=== PATIENT | male | born 1940 | race Caucasian/White ===

== ENCOUNTER 2018-05-14 14:30 | Outpatient (REF) | payer MEDICARE, OTHER, SELFPAY ==
[2018-05-14 20:29] LABS: Abs Immature Grans 0.01 k/cumm (0.0-0.09); Absolute Basophil Count 0.04 k/cumm (0.0-0.2); Absolute Eosinophil Count 0.34 k/cumm (0.0-0.7); Absolute Lymphocyte Count 1.04 k/cumm (1.2-3.4); Absolute Monocyte Count 0.34 k/cumm (0.11-0.7); Absolute Neutrophil Count 2.22 k/cumm (1.2-6.7); Eosinophils % 8.5; HCT 39.5 % (40.0-50.0); HGB 13.2 g/dL (13.5-17.5); Immature Grans % 0.3; Lymphocytes % 26.1; Mean Corp. HGB Concentration 33.4 g/dL (32.0-36.0); Mean Corpuscular Hemoglobin 33.9 pg (27.0-33.0); Mean Corpuscular Volume 101.5 fL (80-95); Mean Platelet Volume 11.7 fL (8.0-11.0); Monocytes % 8.5; Neutrophils % 55.6; Platelet Count 123 x1000/uL (130-400); RBC 3.89 m/cumm (4.50-6.00); RBC Distribution Width 13.2 % (11.8-14.1); White Blood Cell Count 3.99 k/cumm (4.4-10.8)
== END 2018-05-14 14:31 ==
LOC: LBN 14:30
PROVIDERS: PCP Internal Medicine; Visit Provider Internal Medicine Hematology & Oncology
DX: D61.818 Other pancytopenia (principal); D64.9 Anemia, unspecified
CPT/HCPCS: 85025

== ENCOUNTER 2019-02-09 11:38 | Outpatient (REF) | payer MEDICARE, OTHER, SELFPAY ==
[2019-02-09 18:58] LABS: Abs Immature Grans 0.04 k/cumm (0.0-0.09); Absolute Basophil Count 0.04 k/cumm (0.0-0.2); Absolute Eosinophil Count 0.21 k/cumm (0.0-0.7); Absolute Lymphocyte Count 1.43 k/cumm (1.2-3.4); Absolute Monocyte Count 0.54 k/cumm (0.11-0.7); Absolute Neutrophil Count 2.56 k/cumm (1.2-6.7); Basophils % 0.8; Eosinophils % 4.4; HGB 12.6 g/dL (13.5-17.5); Immature Grans % 0.8; Lymphocytes % 29.7; Mean Corp. HGB Concentration 33.2 g/dL (32.0-36.0); Mean Corpuscular Hemoglobin 33.4 pg (27.0-33.0); Mean Corpuscular Volume 100.8 fL (80-95); Mean Platelet Volume 11.1 fL (8.0-11.0); Monocytes % 11.2; Neutrophils % 53.1; Platelet Count 177 x1000/uL (130-400); RBC 3.77 m/cumm (4.50-6.00); RBC Distribution Width 13.1 % (11.8-14.1); White Blood Cell Count 4.82 k/cumm (4.4-10.8)
== END 2019-02-09 11:58 ==
LOC: LBN 11:38
PROVIDERS: PCP Internal Medicine; Visit Provider Internal Medicine Hematology & Oncology
DX: D61.818 Other pancytopenia (principal); D64.9 Anemia, unspecified
CPT/HCPCS: 85025

== ENCOUNTER 2019-02-25 16:39 | Outpatient (REF) | payer MEDICARE, OTHER, SELFPAY ==
[2019-02-25 20:53] LABS: Iron 121 ug/dL (50-175); Total Iron Binding Capacity 246 ug/dL (250-450); Transferrin Sat 49 % (20-55)
[2019-02-25 21:27] LABS: Ferritin 1289 ng/mL (8-388)
== END 2019-02-25 16:59 ==
LOC: LBN 16:39
PROVIDERS: PCP Internal Medicine; Visit Provider Internal Medicine Hematology & Oncology
DX: E83.19 Other disorders of iron metabolism (principal); D61.818 Other pancytopenia
CPT/HCPCS: 82728; 83540; 83550

== ENCOUNTER 2019-03-19 08:43 | Outpatient (REF) | payer MEDICARE, OTHER, SELFPAY | END 2019-03-19 09:03 | LOC: LBN 08:43 | PROVIDERS: PCP Internal Medicine; Visit Provider Nurse Practitioner Adult Health | DX: D35.01 Benign neoplasm of right adrenal gland (principal) | CPT/HCPCS: 82533; 82088; 83835; 84244 ==

== ENCOUNTER 2020-02-17 21:16 | Outpatient (REF) | payer MEDICARE, OTHER, SELFPAY ==
[2020-02-17 21:53] LABS: Iron 168 ug/dL (65-175); Total Iron Binding Capacity 205 ug/dL (250-450); Transferrin Sat 82 % (20-55)
[2020-02-17 22:26] LABS: Ferritin > 2000 ng/mL (26-388)
[2020-02-17 23:06] LABS: ESR 9 mm/hr (1-20)
[2020-02-18 14:32] LABS: Hemoglobin A1C 6.7 % (3.8-5.6)
== END 2020-02-17 21:36 ==
LOC: NCHCN 21:16
PROVIDERS: PCP Internal Medicine; Visit Provider Internal Medicine
DX: D64.9 Anemia, unspecified (principal); R79.0 Abnormal level of blood mineral; R06.09 Other forms of dyspnea; Z90.5 Acquired absence of kidney; R53.83 Other fatigue; C64.9 Malignant neoplasm of unspecified kidney, except renal pelvis
CPT/HCPCS: 82668; 85652; 82728; 83036; 83540; 83550

== ENCOUNTER 2020-02-29 00:55 | Outpatient (CLI) | payer MEDICARE, OTHER, SELFPAY ==
--- NOTE | 2020-02-29 09:15 | DI.NM_ITS ---
APPROVED REPORT Exam: Exercise Treadmill Patient Location: Out-Patient Room/Bed: Stress Nurse: Montserrat Becerril RN BMI: 34.37 Baseline Rhythm: Sinus Tachycardia Indications: Patient states he has been having dyspnea on exertion and very poor exercise tolerance f or the past month. His records state during a recent ED visit he did have some minor EKG changes. Medical History Medical History: CAD, CKD 4, [place], Obesity, Renal Cell Cancer, Nephrectomy Cardiac Medications: Aspirin, Atorvastatin, Metoprolol Tartrate, [place] 3. Allergies: Lopid. Cardiac Risk Factors: HTN, Hyperlipidemia Previous Cardiac Procedures: PCI Pretest Chest Pain Characteristics: Dyspnea Exercise History: Sedentary Physical Disabilities: Legs Lung Sounds: Clear to auscultation Heart Sounds: Regular Stress Test Details Test: Pharmacologic stress testing performed using 0.4 mg of regadenoson per 5 mL given IV over 10 s econds. Nuclear Acquisition: Rest Tc-99m/Stress Tc-99m 1 day Rest Isotope: Tc-99m Sestamibi. Dose: 11.5 Date: 02/29/2020 Injection Time: 0930 Stress Isotope: Tc-99m Sestamibi. Dose: 37.7 Date: 02/29/2020 Injection Time: 1102 HR Resting HR Supine: 106 bpm Max Heart Rate (APMHR): 143 bpm Target HR (85% APMHR): 121 bpm Max HR Achieved: 120 bpm % of APMHR: 83 BP Resting BP Supine: 120/72 mmHg Max BP: 130/60 mmHg ECG Resting ECG: Sinus Tachycardia Stress ECG: Sinus Rhythm ST Change: Normal Arrhythmia: None Recovery ECG: Sinus Rhythm Recovery Arrhythmia: None Clinical Stress Symptoms: None Stress ECG Conclusion 1. This is a pharmacological stress test. 2. EKG portion of this exam is nondiagnostic. Stress Test Summary STAGE HR BP Symptoms NOTES Supine 106 120/72 1 min post Lexiscan injection 118 122/64 3 min post Lexiscan injection 112 130/64 6 min post Lexiscan injection 111 126/64 MPI Conclusion The ejection fraction was 63% with stress. There were no wall motion abnormalities There is no evidence of ischemia on the imaging portion of the exam. This represents a normal SPECT stress test. Radiologist Interpretation Radiologist Interpretation by: Pee Yeung MD Interpretation Date/Time: 03/01/2020 14:46:15
[2020-02-29] MEDS: Regadenoson 0.4 MG/5 ML SYR IVP (11:16)
== END 2020-02-29 01:15 ==
PROVIDERS: PCP Internal Medicine; Visit Provider Internal Medicine
DX: R06.09 Other forms of dyspnea (principal); I25.10 Atherosclerotic heart disease of native coronary artery without angina pectoris; I25.2 Old myocardial infarction; I10 Essential (primary) hypertension; E78.5 Hyperlipidemia, unspecified; N18.4 Chronic kidney disease, stage 4 (severe)
CPT/HCPCS: 78452; 93016; 93018; 93017; J2785

== ENCOUNTER 2020-03-14 14:20 | Outpatient (REF) | payer MEDICARE, OTHER, SELFPAY ==
[2020-03-14 19:03] LABS: Abs Immature Grans 0.61 k/cumm (0.0-0.09); HCT 31.5 % (40.0-50.0); HGB 9.9 g/dL (13.5-17.5); Mean Corp. HGB Concentration 31.4 g/dL (32.0-36.0); Mean Corpuscular Hemoglobin 32.2 pg (27.0-33.0); Mean Corpuscular Volume 102.6 fL (80-95); RBC 3.07 m/cumm (4.50-6.00); White Blood Cell Count 8.29 k/cumm (4.4-10.8)
[2020-03-14 19:41] LABS: Absolute Lymphocyte Count 2.49 k/cumm (1.2-3.4); Absolute Monocyte Count 0.58 k/cumm (0.11-0.7); Absolute Neutrophil Count 5.55 k/cumm (1.2-6.7); Atypical Lymphocytes % 3
[2020-03-14 19:42] LABS: Anisocytosis 1+; Diff Comment Manual Differential
== END 2020-03-14 14:40 ==
LOC: LBN 14:20
PROVIDERS: PCP Internal Medicine; Visit Provider Internal Medicine Hematology & Oncology
DX: D61.818 Other pancytopenia (principal); D64.9 Anemia, unspecified; E83.19 Other disorders of iron metabolism
CPT/HCPCS: 85025

== ENCOUNTER 2020-03-17 09:15 | Outpatient (RCR) | payer MEDICARE, OTHER, SELFPAY ==
[2020-03-17 10:20] LABS: Abs Immature Grans 0.31 k/cumm (0.0-0.09); HCT 31.2 % (40.0-50.0); HGB 9.7 g/dL (13.5-17.5); Mean Corp. HGB Concentration 31.1 g/dL (32.0-36.0); Mean Corpuscular Hemoglobin 32.6 pg (27.0-33.0); Mean Corpuscular Volume 104.7 fL (80-95); Mean Platelet Volume 11.6 fL (8.0-11.0); Platelet Count 181 x1000/uL (130-400); RBC 2.98 m/cumm (4.50-6.00); RBC Distribution Width 16.3 % (11.8-14.1); Reticulocyte 3.9 % (0.5-2.4); White Blood Cell Count 5.03 k/cumm (4.4-10.8)
[2020-03-17 10:48] LABS: Iron 130 ug/dL (65-175); Total Iron Binding Capacity 184 ug/dL (250-450); Transferrin Sat 71 % (20-55)
[2020-03-17 11:06] LABS: Absolute Eosinophil Count 0.05 k/cumm (0.0-0.7); Absolute Lymphocyte Count 0.65 k/cumm (1.2-3.4); Absolute Neutrophil Count 3.77 k/cumm (1.2-6.7)
[2020-03-17 11:07] LABS: Anisocytosis 1+; Diff Comment Manual Differential; Hypochromasia 1+; Polychromasia Present
[2020-03-17 11:47] LABS: ALT 44 U/L (16-63); AST 29 U/L (15-37); Albumin 2.6 g/dL (3.4-5.0); Alkaline Phosphatase 87 U/L (46-116); Anion Gap 4.9 mmol/L (3-11); BUN 31 mg/dL (7-18); Bilirubin, Total 0.5 mg/dL (0.2-1.0); CO2 29.1 mmol/L (21.0-32.0); CREATININE 1.41 mg/dL (0.70-1.30); Calcium 8.6 mg/dL (8.5-10.1); Chloride 107 mmol/L (98-107); Estimated GFR 48.74 (mL/min/1.73m2); Folate 7.8 ng/mL (8.6-20.0); Glucose 101 mg/dL (74-106); LDH 402 U/L (85-227); Potassium 4.8 mmol/L (3.5-5.1); Sodium 141 mmol/L (136-145); TSH 3.38 uIU/mL (0.36-3.74); Total Protein 6.2 g/dL (6.4-8.2); Vitamin B12 642 pg/mL (193-986)
[2020-03-17 12:40] LABS: Ferritin > 2000 ng/mL (26-388)
[2020-03-18 11:21] LABS: Haptoglobin 426 mg/dL (32-197)
[2020-03-18 15:44] LABS: Erythropoietin 43.7 mIU/mL (2.6 - 18.5)
[2020-03-21 16:26] LABS: Albumin 50.5 % (55.8-66.1); Comment (See Note); Total Protein 5.6 g/dL (6.3-8.2)
[2020-03-21 21:08] LABS: Immunotyping, Serum (See Note)
== END 2020-03-22 23:59 | disposition home or self-care (01) ==
LOC: INF 09:15
PROVIDERS: PCP Internal Medicine; Visit Provider Internal Medicine Hematology & Oncology
DX: D61.818 Other pancytopenia (principal); D64.9 Anemia, unspecified; E83.19 Other disorders of iron metabolism
CPT/HCPCS: 36415; 80053; 82668; 82607; 82728; 82746; 83010; 83540; 83550; 83615; 84165; 84443; 85025; 85045; 86320

== ENCOUNTER 2020-03-31 01:03 | Outpatient (RCR) | payer MEDICARE, SELFPAY | END 2020-04-22 23:59 | disposition home or self-care (01) | LOC: INF 01:03 | PROVIDERS: PCP Internal Medicine; Visit Provider Internal Medicine Hematology & Oncology | DX: R69 Illness, unspecified (principal) ==

== ENCOUNTER 2020-03-31 01:33 | Outpatient (CLI) | payer MEDICARE, SELFPAY ==
[2020-03-31 08:36] LABS: Abs Immature Grans 0.02 k/cumm (0.0-0.09); Absolute Basophil Count 0.01 k/cumm (0.0-0.2); Absolute Eosinophil Count 0.15 k/cumm (0.0-0.7); Absolute Monocyte Count 0.58 k/cumm (0.11-0.7); Absolute Neutrophil Count 2.71 k/cumm (1.2-6.7); Basophils % 0.2; Eosinophils % 3.4; HGB 10.2 g/dL (13.5-17.5); Immature Grans % 0.4 %; Lymphocytes % 22.4; Mean Corp. HGB Concentration 30.9 g/dL (32.0-36.0); Mean Corpuscular Volume 106.8 fL (80-95); Mean Platelet Volume 9.8 fL (8.0-11.0); Neutrophils % 60.6; Platelet Count 200 x1000/uL (130-400); RBC 3.09 m/cumm (4.50-6.00); RBC Distribution Width 18.1 % (11.8-14.1); White Blood Cell Count 4.47 k/cumm (4.4-10.8)
[2020-03-31 08:58] LABS: Macrocytosis 1+
== END 2020-03-31 01:53 ==
PROVIDERS: PCP Internal Medicine; Visit Provider Internal Medicine Hematology & Oncology
DX: D46.20 Refractory anemia with excess of blasts, unspecified (principal)
CPT/HCPCS: 36415; 85025

== ENCOUNTER 2020-04-14 01:40 | Outpatient (CLI) | payer MEDICARE, SELFPAY ==
[2020-04-14 08:16] LABS: Abs Immature Grans 0.02 k/cumm (0.0-0.09); Absolute Basophil Count 0.02 k/cumm (0.0-0.2); Absolute Eosinophil Count 0.08 k/cumm (0.0-0.7); Absolute Lymphocyte Count 1.25 k/cumm (1.2-3.4); Absolute Monocyte Count 0.54 k/cumm (0.11-0.7); Basophils % 0.5; Eosinophils % 1.8; HCT 36.4 % (40.0-50.0); HGB 11.3 g/dL (13.5-17.5); Immature Grans % 0.5 %; Lymphocytes % 28.3; Mean Corpuscular Hemoglobin 33.3 pg (27.0-33.0); Mean Corpuscular Volume 107.4 fL (80-95); Mean Platelet Volume 10.3 fL (8.0-11.0); Monocytes % 12.2; Neutrophils % 56.7; Platelet Count 183 x1000/uL (130-400); RBC 3.39 m/cumm (4.50-6.00); RBC Distribution Width 16.3 % (11.8-14.1); White Blood Cell Count 4.41 k/cumm (4.4-10.8)
[2020-04-14 08:25] LABS: Anisocytosis 2+; Basophilic Stippling Present; Diff Comment RBC Morph Reviewed; Hypochromasia 1+; Macrocytosis 2+; Polychromasia Present
== END 2020-04-14 02:00 ==
PROVIDERS: PCP Internal Medicine; Visit Provider Internal Medicine Hematology & Oncology
DX: D46.20 Refractory anemia with excess of blasts, unspecified (principal)
CPT/HCPCS: 36415; 85025

== ENCOUNTER 2020-04-28 01:42 | Outpatient (CLI) | payer MEDICARE, SELFPAY ==
[2020-04-28 08:07] LABS: Abs Immature Grans 0.02 10^3/uL (0.0-0.06); Absolute Basophil Count 0.05 10^3/uL (0.0-0.2); Absolute Eosinophil Count 0.14 10^3/uL (0.0-0.7); Absolute Lymphocyte Count 1.14 10^3/uL (1.2-3.4); Absolute Monocyte Count 0.56 10^3/uL (0.1-0.8); Basophils % 1.1; Eosinophils % 3.2; HCT 40.7 % (40.0-50.0); HGB 12.8 g/dL (13.5-17.5); Immature Grans % 0.5; Lymphocytes % 25.9; MCH 33.8 pg (27.0-33.0); MCHC 31.4 % (32.0-36.0); MCV 107.4 fL (80-95); MPV 10.5 fL (8.0-11.0); Monocytes % 12.7; Neutrophils % 56.6; Nucleated RBC 0 %; Platelet Count 164 10^3/uL (130-400); RBC 3.79 10^6/uL (4.36-5.78); RDW 15.1 % (11.8-14.1); WBC 4.41 10^3/uL (4.4-10.8)
== END 2020-04-28 02:02 ==
PROVIDERS: PCP Internal Medicine; Visit Provider Internal Medicine Hematology & Oncology
DX: D46.20 Refractory anemia with excess of blasts, unspecified (principal)
CPT/HCPCS: 36415; 85025

== ENCOUNTER 2020-05-12 01:36 | Outpatient (CLI) | payer MEDICARE, SELFPAY ==
[2020-05-12 08:48] LABS: Abs Immature Grans 0.03 10^3/uL (0.0-0.06); Absolute Basophil Count 0.04 10^3/uL (0.0-0.2); Absolute Eosinophil Count 0.16 10^3/uL (0.0-0.7); Absolute Lymphocyte Count 1.25 10^3/uL (1.2-3.4); Absolute Monocyte Count 0.52 10^3/uL (0.1-0.8); Absolute Neutrophil Count 3.08 10^3/uL (1.2-6.7); Basophils % 0.8; Eosinophils % 3.1; HCT 41.1 % (40.0-50.0); HGB 13.4 g/dL (13.5-17.5); Immature Grans % 0.6; Lymphocytes % 24.6; MCH 34.2 pg (27.0-33.0); MCHC 32.6 % (32.0-36.0); MCV 104.8 fL (80-95); MPV 10.7 fL (8.0-11.0); Monocytes % 10.2; Neutrophils % 60.7; Nucleated RBC 0 %; Platelet Count 185 10^3/uL (130-400); RBC 3.92 10^6/uL (4.36-5.78); RDW 13.7 % (11.8-14.1); RDW-SD 52.4 fL; WBC 5.08 10^3/uL (4.4-10.8)
== END 2020-05-12 01:56 ==
PROVIDERS: PCP Internal Medicine; Visit Provider Internal Medicine Hematology & Oncology
DX: D46.20 Refractory anemia with excess of blasts, unspecified (principal)
CPT/HCPCS: 36415; 85025

== ENCOUNTER 2020-05-26 08:02 | Outpatient (CLI) | payer MEDICARE, SELFPAY ==
[2020-05-26 08:19] LABS: Abs Immature Grans 0.03 10^3/uL (0.0-0.06); Absolute Basophil Count 0.03 10^3/uL (0.0-0.2); Absolute Lymphocyte Count 1.38 10^3/uL (1.2-3.4); Absolute Monocyte Count 0.61 10^3/uL (0.1-0.8); Absolute Neutrophil Count 3.01 10^3/uL (1.2-6.7); Basophils % 0.6; Eosinophils % 3.8; HCT 41.1 % (40.0-50.0); HGB 13.3 g/dL (13.5-17.5); Immature Grans % 0.6; Lymphocytes % 26.2; MCH 33.8 pg (27.0-33.0); MCHC 32.4 % (32.0-36.0); MCV 104.3 fL (80-95); Monocytes % 11.6; Neutrophils % 57.2; Nucleated RBC 0 %; Platelet Count 162 10^3/uL (130-400); RBC 3.94 10^6/uL (4.36-5.78); RDW 13.4 % (11.8-14.1); RDW-SD 51.6 fL; WBC 5.26 10^3/uL (4.4-10.8)
== END 2020-05-26 08:22 ==
PROVIDERS: PCP Internal Medicine; Visit Provider Internal Medicine Hematology & Oncology
DX: D46.20 Refractory anemia with excess of blasts, unspecified (principal)
CPT/HCPCS: 36415; 85025

== ENCOUNTER 2020-06-09 04:13 | Outpatient (CLI) | payer MEDICARE, SELFPAY ==
[2020-06-09 09:09] LABS: Abs Immature Grans 0.02 10^3/uL (0.0-0.06); Absolute Basophil Count 0.03 10^3/uL (0.0-0.2); Absolute Eosinophil Count 0.17 10^3/uL (0.0-0.7); Absolute Lymphocyte Count 1.17 10^3/uL (1.2-3.4); Absolute Monocyte Count 0.52 10^3/uL (0.1-0.8); Absolute Neutrophil Count 2.53 10^3/uL (1.2-6.7); Basophils % 0.7; Eosinophils % 3.8; HCT 38.6 % (40.0-50.0); HGB 12.3 g/dL (13.5-17.5); Immature Grans % 0.5; Lymphocytes % 26.4; MCH 32.9 pg (27.0-33.0); MCHC 31.9 % (32.0-36.0); MCV 103.2 fL (80-95); Monocytes % 11.7; Neutrophils % 56.9; Nucleated RBC 0 %; Platelet Count 148 10^3/uL (130-400); RBC 3.74 10^6/uL (4.36-5.78); RDW 13.6 % (11.8-14.1); RDW-SD 51.9 fL; WBC 4.44 10^3/uL (4.4-10.8)
== END 2020-06-09 04:33 ==
PROVIDERS: PCP Internal Medicine; Visit Provider Internal Medicine Hematology & Oncology
DX: D46.20 Refractory anemia with excess of blasts, unspecified (principal)
CPT/HCPCS: 36415; 85025

== ENCOUNTER 2020-06-23 04:54 | Outpatient (CLI) | payer MEDICARE, SELFPAY ==
[2020-06-23 07:50] LABS: Abs Immature Grans 0.02 10^3/uL (0.0-0.06); Absolute Basophil Count 0.04 10^3/uL (0.0-0.2); Absolute Eosinophil Count 0.16 10^3/uL (0.0-0.7); Absolute Lymphocyte Count 1.26 10^3/uL (1.2-3.4); Absolute Monocyte Count 0.43 10^3/uL (0.1-0.8); Absolute Neutrophil Count 3.29 10^3/uL (1.2-6.7); Basophils % 0.8; Eosinophils % 3.1; HCT 40.3 % (40.0-50.0); HGB 13.3 g/dL (13.5-17.5); Immature Grans % 0.4; Lymphocytes % 24.2; MCH 32.8 pg (27.0-33.0); MCV 99.5 fL (80-95); MPV 11.3 fL (8.0-11.0); Monocytes % 8.3; Neutrophils % 63.2; Nucleated RBC 0 %; Platelet Count 169 10^3/uL (130-400); RBC 4.05 10^6/uL (4.36-5.78); RDW 13.7 % (11.8-14.1); RDW-SD 49.8 fL
[2020-06-23 09:03] LABS: ALT 36 U/L (16-63); AST 26 U/L (15-37); Albumin 3.5 g/dL (3.4-5.0); Alkaline Phosphatase 113 U/L (46-116); Anion Gap 7.8 mmol/L (3-11); BUN 40 mg/dL (7-18); Bilirubin, Total 0.3 mg/dL (0.2-1.0); CO2 27.2 mmol/L (21.0-32.0); Calcium 8.7 mg/dL (8.5-10.1); Chloride 106 mmol/L (98-107); Estimated GFR 36.67 (mL/min/1.73m2); Glucose 118 mg/dL (74-106); Potassium 4.3 mmol/L (3.5-5.1); Sodium 141 mmol/L (136-145); Total Protein 6.2 g/dL (6.4-8.2); Uric Acid 3.6 mg/dL (3.5-7.2)
== END 2020-06-23 05:14 ==
PROVIDERS: PCP Internal Medicine; Visit Provider Internal Medicine Hematology & Oncology
DX: D46.20 Refractory anemia with excess of blasts, unspecified (principal); M10.9 Gout, unspecified; N18.4 Chronic kidney disease, stage 4 (severe)
CPT/HCPCS: 36415; 80053; 84550; 85025

== ENCOUNTER 2021-02-22 15:13 | Outpatient (REF) | payer MEDICARE, SELFPAY ==
[2021-02-22 19:03] LABS: HCT 38.5 % (40.0-50.0); HGB 13.1 g/dL (13.5-17.5); MCH 34.4 pg (27.0-33.0); MPV 12.3 fL (8.0-11.0); Platelet Count 171 10^3/uL (130-400); RBC 3.81 10^6/uL (4.36-5.78); RDW 14.7 % (11.8-14.1); RDW-SD 54.5 fL; WBC 4.22 10^3/uL (4.4-10.8)
[2021-02-22 19:27] LABS: ALT 55 U/L (16-63); AST 41 U/L (15-37); Albumin 3.6 g/dL (3.4-5.0); Alkaline Phosphatase 81 U/L (46-116); Anion Gap 10.5 mmol/L (3-11); BUN 35 mg/dL (7-18); Bilirubin, Total 0.6 mg/dL (0.2-1.0); CO2 26.5 mmol/L (21.0-32.0); CREATININE 2.3 mg/dL (0.70-1.30); Calcium 8.9 mg/dL (8.5-10.1); Chloride 108 mmol/L (98-107); Estimated GFR 27.64 (mL/min/1.73m2); Glucose 103 mg/dL (74-106); LDL CHOLESTEROL 85 mg/dL (<100); Potassium 4.4 mmol/L (3.5-5.1); Sodium 145 mmol/L (136-145); Total Protein 6.2 g/dL (6.4-8.2)
== END 2021-02-22 15:14 | disposition home or self-care (01) ==
LOC: NCHCN 15:13
PROVIDERS: PCP Internal Medicine; Visit Provider Internal Medicine
DX: D46.9 Myelodysplastic syndrome, unspecified (principal); I26.99 Other pulmonary embolism without acute cor pulmonale; E66.9 Obesity, unspecified; M10.9 Gout, unspecified
CPT/HCPCS: 80053; 83721; 85027

== ENCOUNTER 2021-03-23 04:18 | Outpatient (CLI) | payer MEDICARE, SELFPAY ==
[2021-03-23 09:56] LABS: Abs Immature Grans 0.03 10^3/uL (0.0-0.06); Absolute Basophil Count 0.04 10^3/uL (0.0-0.2); Absolute Eosinophil Count 0.13 10^3/uL (0.0-0.7); Absolute Lymphocyte Count 1.28 10^3/uL (1.2-3.4); Basophils % 0.9; Eosinophils % 2.8; HCT 40.8 % (40.0-50.0); HGB 13.3 g/dL (13.5-17.5); Immature Grans % 0.7; Lymphocytes % 27.9; MCH 33.9 pg (27.0-33.0); MCHC 32.6 % (32.0-36.0); MCV 104.1 fL (80-95); MPV 11.1 fL (8.0-11.0); Monocytes % 13.1; Neutrophils % 54.6; Nucleated RBC 0 %; Platelet Count 173 10^3/uL (130-400); RBC 3.92 10^6/uL (4.36-5.78); RDW 14.3 % (11.8-14.1); RDW-SD 54.7 fL; WBC 4.58 10^3/uL (4.4-10.8)
[2021-03-23 10:18] LABS: Ferritin 825 ng/mL (26-388)
== END 2021-03-23 04:19 | disposition home or self-care (01) ==
LOC: LBO 04:20
PROVIDERS: PCP Internal Medicine; Visit Provider Internal Medicine Hematology & Oncology
DX: D46.20 Refractory anemia with excess of blasts, unspecified (principal); N18.31 Chronic kidney disease, stage 3a; D63.1 Anemia in chronic kidney disease
CPT/HCPCS: 36415; 82728; 85025

== ENCOUNTER 2022-06-04 15:21 | Outpatient (REF) | payer MEDICARE, SELFPAY ==
[2022-06-04 20:33] LABS: HCT 41.8 % (40.0-50.0); HGB 14.1 g/dL (13.5-17.5); MCH 32.8 pg (27.0-33.0); MCHC 33.7 % (32.0-36.0); MCV 97 fL (80-95); MPV 12.6 fL (8.0-11.0); Platelet Count 152 10^3/uL (130-400); RDW 14.3 % (11.8-14.1); RDW-SD 50.9 fL; WBC 4.28 10^3/uL (4.4-10.8)
[2022-06-04 21:00] LABS: Hemoglobin A1C 5.6 % (<5.7)
[2022-06-04 21:02] LABS: Albumin 3.8 g/dL (3.4-5.0); Anion Gap 7.8 mmol/L (3-11); BUN 32 mg/dL (7-18); CO2 28.2 mmol/L (21.0-32.0); CREATININE 1.6 mg/dL (0.70-1.30); Calcium 8.6 mg/dL (8.5-10.1); Chloride 105 mmol/L (98-107); Estimated GFR 43.29 (mL/min/1.73m2); Ferritin 908 ng/mL (26-388); Glucose 166 mg/dL (74-106); Potassium 4.6 mmol/L (3.5-5.1); Sodium 141 mmol/L (136-145)
[2022-06-04 21:17] LABS: PHOSPHORUS 2.9 mg/dL (2.6-4.7)
== END 2022-06-04 15:22 | disposition home or self-care (01) ==
LOC: NCHCN 15:21
PROVIDERS: PCP Internal Medicine; Visit Provider Internal Medicine
DX: D64.9 Anemia, unspecified (principal); N18.30 Chronic kidney disease, stage 3 unspecified; R73.09 Other abnormal glucose
CPT/HCPCS: 80069; 85027; 82728; 83036